=== PATIENT | female | born 1980 | race Caucasian/White ===

== ENCOUNTER → 2017-01-22 | Outpatient (CLI) | payer BC ==
[~2017-01-22] MED LIST: FOLIC ACID 40400 MCG PO; MULTIVITAMIN1 CTB PO; NORCO 325 MG-51 TAB PO; NORCO 325 MG-7.1 TAB PO; PRENATAL1 TA5 PO; PRISTIQ100 MG PO; PROTONIX 40MG T40 MG PO; ROXICODONE 55 MG/TAB PO; ULTRAM 50MG TAB50 MG PO; VITAMIN B12 PO
== END ==
LOC: COL.RAD 01-20 09:00
DX: R11.0 Nausea (principal)

== ENCOUNTER → 2017-01-30 | Outpatient (CLI) | payer BC | LOC: COL.RAD 12:05 | DX: R11.0 Nausea (principal) | CPT/HCPCS: A9537; J2270; J2805 ==

== ENCOUNTER 2017-03-04 09:29 | Day surgery (SDC) | payer BC ==
[~2017-03-04] VITALS: Ht 162.6 cm; Wt 90.6 kg
[~2017-03-04 09:29] MED LIST changes: -MULTIVITAMIN1 CTB PO; -NORCO 325 MG-51 TAB PO; -PRISTIQ100 MG PO
[2017-03-04 10:25] VITALS: BP 120/71; PULSE 85; TEMP 98.9
[2017-03-04] MEDS ORDERED: PRISTIQ100 MG PO (10:33)
[2017-03-04] MEDS ORDERED: MULTIVITAMIN1 CTB PO (10:34)
[2017-03-04 14:15] VITALS: BP 119/74; PULSE 88; TEMP 98.4
[2017-03-04 14:30] VITALS: BP 117/68; PULSE 76
[2017-03-04 14:45] VITALS: BP 114/73; PULSE 74
[2017-03-04 15:00] VITALS: BP 111/72; PULSE 75
[2017-03-04] MEDS ORDERED: NORCO 325 MG-51 TAB PO (15:12)
[2017-03-04 15:53] VITALS: BP 115/78; PULSE 83
== END 2017-03-04 16:19 | disposition home or self-care (01) ==
LOC: SDCO 09:29
DX: K81.1 Chronic cholecystitis (principal); K21.9 Gastro-esophageal reflux disease without esophagitis; F41.9 Anxiety disorder, unspecified; J45.909 Unspecified asthma, uncomplicated; Z82.49 Family history of ischemic heart disease and other diseases of the circulatory system; Z80.8 Family history of malignant neoplasm of other organs or systems; Z98.84 Bariatric surgery status
CPT/HCPCS: J1100; J1885; J2405; J2704; J2710; J3010

== ENCOUNTER 2019-05-03 10:27 | Outpatient (RCR) | payer BC ==
[~2019-05-03 10:27] MED LIST changes: +MULTIVITAMIN1 CTB PO; +NORCO 325 MG-51 TAB PO; +PRISTIQ100 MG PO
== END 2019-08-01 | disposition home or self-care (01) ==
LOC: MKS.ESL.PT
DX: S83.282A Other tear of lateral meniscus, current injury, left knee, initial encounter (principal)